=== PATIENT | male | born 1950 | race Caucasian/White ===

== ENCOUNTER 2018-07-21 12:46 | Outpatient (CLI) | payer MEDICARE ==
--- NOTE | 2018-07-21 15:48 | ULT ---
VENOUS DUPLEX SONOGRAM LEFT LOWER EXTREMITY: 07/21/18 HISTORY: Left leg pain and edema. FINDINGS: Internal thrombus of the greater saphenous vein to the level of the upper thigh without compression. Good color and spectral doppler flow within the common femoral vein, femoral, and deep femoral veins, popliteal, and posterior tibial veins. IMPRESSION: Thrombosis throughout the left greater saphenous vein. The findings were called to Dr. Barkley at 1557 hours. Code CR POS: SJ
== END 2018-07-21 12:47 | disposition home or self-care (01) ==
LOC: ULT 12:46
PROVIDERS: ATTEND Family Medicine
DX: M79.89 Other specified soft tissue disorders (principal); I82.812 Embolism and thrombosis of superficial veins of left lower extremity
CPT/HCPCS: 80053; 85025

== ENCOUNTER 2018-07-22 10:04 | Emergency (ER) | payer MEDICARE ==
[2018-07-22] MEDS ORDERED: Enoxaparin Sodium 80 MG/0.8 ML SYRINGE ONE (11:48)
== END 2018-07-22 11:54 | disposition home or self-care (01) ==
LOC: ERS 10:04
DX: I82.402 Acute embolism and thrombosis of unspecified deep veins of left lower extremity (principal); I10 Essential (primary) hypertension; Z86.73 Personal history of transient ischemic attack (TIA), and cerebral infarction without residual deficits; Z79.82 Long term (current) use of aspirin; Z79.899 Other long term (current) drug therapy; Z79.01 Long term (current) use of anticoagulants
CPT/HCPCS: 96372; J1650

== ENCOUNTER 2019-09-29 13:31 | Emergency (ER) | payer MEDICARE ==
[2019-09-29] MEDS ORDERED: HYDROcodone/Acetaminophen 10/325 mg Tablet ONE (14:23)
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
[2019-09-29] MEDS ORDERED: Bacitracin 1 PK ONE (14:50)
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
== END 2019-09-29 15:40 | disposition home or self-care (01) ==
LOC: ERS 13:31
DX: S22.31XA Fracture of one rib, right side, initial encounter for closed fracture (principal); S80.11XA Contusion of right lower leg, initial encounter; S41.112A Laceration without foreign body of left upper arm, initial encounter; V43.92XA Unspecified car occupant injured in collision with other type car in traffic accident, initial encounter
CPT/HCPCS: 93005; 93010

== ENCOUNTER 2020-03-29 10:51 | Outpatient (CLI) | payer MEDICARE ==
--- NOTE | 2020-03-29 11:12 | ULT ---
ULTRASOUND DOPPLER DUPLEX VENOUS RIGHT LOWER EXTREMITY: DATE: 03/29/2020 HISTORY: 69-year-old male with right lower extremity pain, swelling, and erythema TECHNIQUE: Grayscale, color-flow, and spectral analysis, of major veins of right lower extremity. FINDINGS: There is demonstration of blood flow with normal compressibility, of the right common femoral, profun da femoral, greater saphenous, femoral, popliteal, and posterior tibial, veins. Mild edema in the soft tissues of the calf. IMPRESSION: 1). No deep venous thrombosis of right lower extremity. 2) soft tissue edema at right leg
== END 2020-03-29 10:52 | disposition home or self-care (01) ==
LOC: BICULT 10:51
PROVIDERS: ATTEND Family Medicine
DX: M79.604 Pain in right leg (principal); R60.0 Localized edema

== ENCOUNTER 2022-03-27 13:16 | Outpatient (CLI) | payer MEDICARE | END 2022-03-27 13:17 | disposition home or self-care (01) | LOC: ULT 13:16 | PROVIDERS: ATTEND Family Medicine | DX: M79.605 Pain in left leg (principal); M79.89 Other specified soft tissue disorders; I82.812 Embolism and thrombosis of superficial veins of left lower extremity ==

== ENCOUNTER 2022-11-22 08:22 | Outpatient (CLI) | payer MEDICARE ==
[2022-11-22] MEDS ORDERED: Iopamidol 370 76% 100 ML VIAL ONE (10:31)
== END 2022-11-22 08:23 | disposition home or self-care (01) ==
LOC: BICCT 08:22
PROVIDERS: ATTEND Internal Medicine Gastroenterology
DX: C18.9 Malignant neoplasm of colon, unspecified (principal); K76.0 Fatty (change of) liver, not elsewhere classified; N28.1 Cyst of kidney, acquired; K57.30 Diverticulosis of large intestine without perforation or abscess without bleeding; N32.89 Other specified disorders of bladder
CPT/HCPCS: 74177; 82565

== ENCOUNTER 2022-12-19 15:26 | Inpatient (IN) | payer MEDICARE ==
[~2022-12-19 15:26] MED LIST: Iopamidol-370 76% 500 ML 1 ML ONE
[2022-12-19] MEDS ORDERED: LORazepam 2 MG/ML SYR.(CARPUJECT) ONE (15:35)
[2022-12-19] MEDS ORDERED: Diltiazem 125 MG/25 ML ONE (15:36)
[2022-12-19] MEDS ORDERED: Rocuronium Bromide 10 MG/ML (10ML VIAL) ONE (15:52)
[2022-12-19 16:04] LABS: #Eosinphils 0.2 thou/uL (0.0-0.7); #Lymphocytes 3.3 thou/uL (1.20-3.40); #Monocytes 1.1 thou/uL (0.11-0.59); #Neutrophils 6.3 thou/uL (1.40-6.50); %Basophils 0.4 % (0.0-1.0); %Eosinophils 1.6 % (0.0-10.0); %Lymphocytes 30.2 % (21.0-51.0); %Monocytes 9.9 % (0.0-10.0); %Neutrophils 57.8 % (42.0-75.0); Hemoglobin 18.8 g/dL (14.0-18.0); Mean Corpuscular HGB CONC 32.8 g/dL (32.0-36.0); Mean Corpuscular Hemoglobin 31.9 pg (27.0-31.0); Mean Corpuscular Volume 97.1 fl (78.0-98.0); Mean Platelet Volume 9.3 fL (7.4-10.4); Platelet Count 214 10x3/uL (130-400); RBC Distribution Width 12.4 % (11.5-14.5); Red Blood Cell (RBC) Count 5.91 mill/uL (4.70-6.10); White Blood Cell (WBC) Count 10.8 10x3/uL (4.8-10.8)
[2022-12-19] MEDS ORDERED: Midazolam HCl 2 mg/2 ml Vial ONE ×2 (16:06→16:48)
[2022-12-19] MEDS ORDERED: Dexamethasone 10 MG/ML VIAL ONE (16:10)
[2022-12-19] MEDS ORDERED: diphenhydrAMINE 50 MG/ML VIAL ONE (16:10)
[2022-12-19 16:14] LABS: Actual Bicarbonate (HCO3v) 15 mEq/L (22-28); Analyzer IN Cardio ER; Calcium, Ionized (venous) 1.04 mmol/L (1.16-1.32); Chloride (VBG) 107 mmol/L (98-106); Sodium 139.3 mmol/L (133-146)
[2022-12-19 16:16] LABS: Potassium (VBG) 7.36 mmol/L (3.70-5.30)
[2022-12-19] MEDS ORDERED: Vancomycin 1 GM/200 ML (FROZEN) BAG ONE (16:38)
[2022-12-19] MEDS ORDERED: Magnesium 2 GM/50 ML BAG (IN WATER) ONE (16:38)
[2022-12-19] MEDS ORDERED: Cefepime 2 GM VIAL ONE (16:38)
[2022-12-19 17:05] LABS: SARS-CoV-2 NAA Rapid Test Not Detected (NotDetected)
[2022-12-19 17:25] LABS: Analyzer IN Cardio ER; Base Excess (BEa) -6.8 mEq/L (-2.0 to +3.0); CO2 Tension 44.4 mmHg (35.0-45.0); Calcium, Ionized (arterial) 1.13 mmol/L (1.12-1.30); Carboxyhemoglobin (COHb) 0.3 gm% (0.0-3.0); Hemoglobin (Hb) 17.2 g/dL (14.0-18.0); O2 Tension (PaO2), arterial 83.6 mmHg (> 70.0); pH, Arterial 7.27 (7.35-7.45)
[2022-12-19 17:26] LABS: Puncture Site RBA
[2022-12-19] MEDS ORDERED: Ondansetron PF 4 MG/2 ML Vial IVP PRN (17:44)
[2022-12-19] MEDS ORDERED: Ventilator Sedation Protocol 1 EACH FS SCH (17:44)
[2022-12-19] MEDS ORDERED: Thiamine HCl 200 MG/2 ML VIAL SLOW IVP SCH (17:45)
[2022-12-19] MEDS ORDERED: Electrolyte Replacement Protocol 1 EACH FS SCH (17:45)
[2022-12-19 17:57] LABS: ALT (SGPT) 21 U/L (8-55); AST (SGOT) 22 U/L (5-34); Albumin 4.3 g/dL (3.4-4.8); Alkaline Phosphatase 81 U/L (40-110); Anion Gap 15 mmol/L (10-20); BUN (Urea Nitrogen) 13 mg/dL (8.4-25.7); Bilirubin, Total 1.8 mg/dL (0.2-1.2); CK (CPK) 97 U/L (30-200); Calc. Creatinine Clearance 0 mL/min (70-130); Calcium 8.4 mg/dL (7.8-10.44); Carbon Dioxide 19 mmol/L (23-31); Chloride 109 mmol/L (98-107); Estimated GFR 94; Globulin 3.7 g/dL (2.4-3.5); Glucose 185 mg/dL (83-110); Lipase 12 U/L (8-78); Potassium 3.6 mmol/L (3.5-5.1); Sodium 139 mmol/L (136-145)
[2022-12-19 18:13] LABS: Bacteria/HPF None Seen HPF (None Seen); Bilirubin Negative (Negative); Blood, Urine 1+ (Negative); Clarity Clear (Clear); Glucose, Urine (Dipstick) 200 mg/dL (Negative); Ketone, Urine Negative (Negative); Leukocyte Negative Leu/uL (Negative); Nitrite Negative (Negative); Protein, Urine (Dipstick) 10 mg/dL (Neg-Trace); Specific Gravity, Urine 1.022 (1.002-1.036); Squamous Epithelial None Seen HPF (0-3); Urobilinogen Normal mg/dL (Less than 2); WBC/HPF 0-3 HPF (0-3)
[2022-12-19] MEDS ORDERED: DISCONTINUE PREVIOUS NARCOTIC PAIN MEDICATIONS AND BENZODIAZEPINES FS SCH (18:15)
[2022-12-19] MEDS ORDERED: Lorazepam 2 MG/ML VIAL SLOW IVP PRN (18:15)
[2022-12-19] MEDS ORDERED: Propofol BOLUS 1,000 MG/100 ML VIAL IV PRN (18:15)
[2022-12-19] MEDS ORDERED: Fentanyl BOLUS 250 ML IVPB PRN (18:15)
[2022-12-19] MEDS ORDERED: Morphine 2 MG/ML VIAL SLOW IVP PRN (18:15)
[2022-12-19] MEDS ORDERED: Fentanyl CADD 100 ML IV SCH (18:15)
[2022-12-19] MEDS ORDERED: Diltiazem 125 MG in Sodium Chloride 0.9% 100 ML IVPB SCH (18:45)
[2022-12-19] MEDS: Propofol 1,000 MG/100 ML VIAL IV PRN (19:42)
[2022-12-19] MEDS ORDERED: hydrALAZINE 20 MG/ML VIAL SLOW IVP PRN (19:45)
[2022-12-19] MEDS ORDERED: Labetalol HCl 100 MG/20 ML VIAL SLOW IVP PRN (19:45)
[2022-12-19] MEDS ORDERED: Ipratropium/Albuterol 3 ML NEB NEB PRN (19:46)
[2022-12-19] MEDS ORDERED: Guaifenesin DM 100-10/5 ML UDCUP PO PRN (19:46)
[2022-12-19 20:47] LABS: Magnesium 2.5 mg/dL (1.6-2.6); Phosphorus 2.5 mg/dL (2.3-4.7)
[2022-12-19 20:59] LABS: Troponin I 0.243 ng/mL (< 0.028)
[2022-12-19 21:04] LABS: Amphetamine Not Detected (NotDetected); Barbiturates Screen Not Detected (NotDetected); Benzodiazepine Screen Not Detected (NotDetected); Cocaine Metabolite Screen Not Detected (NotDetected); Methadone Not Detected (NotDetected); Methamphetamine Not Detected (NotDetected); Opiate Screen Not Detected (NotDetected); Oxycodone Screen Not Detected (NotDetected); Phencyclidine (PCP) Not Detected (NotDetected); THC/Cannabinoid Screen Not Detected (NotDetected); Tricyclic Screen Not Detected (NotDetected)
[2022-12-19 21:07] LABS: Legionella Urinary Ag Negative (Negative); Strep pneumo Urine Ag NEGATIVE (NEGATIVE)
[2022-12-19] MEDS: Famotidine/PF 20 mg/2ml Vial SLOW IVP SCH (21:22)
[2022-12-19] MEDS ORDERED: Vancomycin HCl 500 MG in Sodium Chloride 0.9% 100 ML IVPB SCH (22:00)
[2022-12-20 03:44] LABS: #Lymphocytes 0.5 thou/uL (1.20-3.40); #Monocytes 0.5 thou/uL (0.11-0.59); #Neutrophils 11.8 thou/uL (1.40-6.50); %Basophils 0.1 % (0.0-1.0); %Eosinophils 0.2 % (0.0-10.0); %Lymphocytes 3.7 % (21.0-51.0); %Monocytes 4.1 % (0.0-10.0); %Neutrophils 91.8 % (42.0-75.0); Hemoglobin 14.7 g/dL (14.0-18.0); Mean Corpuscular HGB CONC 32.6 g/dL (32.0-36.0); Mean Corpuscular Hemoglobin 31.7 pg (27.0-31.0); Mean Platelet Volume 8.5 fL (7.4-10.4); Platelet Count 190 10x3/uL (130-400); RBC Distribution Width 12.4 % (11.5-14.5); Red Blood Cell (RBC) Count 4.66 mill/uL (4.70-6.10); White Blood Cell (WBC) Count 12.9 10x3/uL (4.8-10.8)
[2022-12-20 03:54] LABS: INR-International Normal Ratio 1.2; PTT 28.5 sec (22.9-36.1)
[2022-12-20 04:06] LABS: ALT (SGPT) 17 U/L (8-55); AST (SGOT) 16 U/L (5-34); Albumin 3.7 g/dL (3.4-4.8); Alkaline Phosphatase 64 U/L (40-110); Anion Gap 12 mmol/L (10-20); BUN (Urea Nitrogen) 11 mg/dL (8.4-25.7); Bilirubin, Direct 0.6 mg/dL (0.1-0.3); Bilirubin, Total 1.8 mg/dL (0.2-1.2); Calc. Creatinine Clearance 92 mL/min (70-130); Calcium 8.3 mg/dL (7.8-10.44); Carbon Dioxide 21 mmol/L (23-31); Cardiac Risk 2.3 (Less than 4.5); Chloride 109 mmol/L (98-107); Cholesterol 190 mg/dl (< 200 Desired); Estimated GFR 97; Glucose 156 mg/dL (83-110); HDL Cholesterol 83 mg/dL (>60 Neg Risk); LDL Cholesterol, Calculated 98 mg/dL; Magnesium 2.3 mg/dL (1.6-2.6); Potassium 4.1 mmol/L (3.5-5.1); Protein, Total 6.7 g/dL (5.8-8.1); Sodium 138 mmol/L (136-145); Triglycerides 46 mg/dL (Less than 150)
[2022-12-20 04:08] LABS: Phosphorus 3.1 mg/dL (2.3-4.7)
[2022-12-20] MEDS: Cefepime 2 GM in Sodium Chloride 0.9% 100 ML IVPB SCH ×2 (04:10→17:24)
[2022-12-20] MEDS ORDERED: Aspirin Chewable 81 MG TAB PER TUBE SCH ×2 (04:15→09:00)
[2022-12-20 05:50] LABS: Critical Call Chem Troponin I RESULT DECREASING
[2022-12-20 06:09] LABS: CKMB 5.5 ng/mL (0-6.6)
[2022-12-20 08:35] LABS: Phosphorus 3.3 mg/dL (2.3-4.7)
[2022-12-20 08:36] LABS: Magnesium 2.2 mg/dL (1.6-2.6)
[2022-12-20] MEDS ORDERED: Empagliflozin 10 MG TAB PO SCH (09:30)
[2022-12-20] MEDS: Multivitamin W/ Minerals 1 TAB PER TUBE SCH (09:53)
[2022-12-20] MEDS: Cyanocobalamin (Vitamin B-12) 1,000 MCG TAB PER TUBE SCH (09:53)
[2022-12-20] MEDS: Famotidine/PF 20 mg/2ml Vial SLOW IVP SCH ×2 (09:53→21:34)
[2022-12-20] MEDS: Furosemide 40 MG/4 ML VIAL SLOW IVP SCH (09:53)
[2022-12-20] MEDS: Folic Acid 1 MG TAB PER TUBE SCH (09:53)
[2022-12-20] MEDS: Vancomycin 1 GM in Premix Bag 1 BAG IVPB SCH ×2 (09:54→21:35)
[2022-12-20] MEDS: Propofol 1,000 MG/100 ML VIAL IV PRN (19:07)
[2022-12-20] MEDS: Thiamine HCl 200 MG/2 ML VIAL SLOW IVP SCH (21:31)
[2022-12-21] MEDS: Cefepime 2 GM in Sodium Chloride 0.9% 100 ML IVPB SCH ×2 (03:27→16:51)
[2022-12-21 05:16] LABS: #Lymphocytes 1.2 thou/uL (1.20-3.40); #Monocytes 1.5 thou/uL (0.11-0.59); #Neutrophils 13.1 thou/uL (1.40-6.50); %Basophils 0.1 % (0.0-1.0); %Eosinophils 0.2 % (0.0-10.0); %Lymphocytes 7.7 % (21.0-51.0); %Monocytes 9.4 % (0.0-10.0); %Neutrophils 82.5 % (42.0-75.0); Hemoglobin 13.9 g/dL (14.0-18.0); Mean Corpuscular HGB CONC 31.8 g/dL (32.0-36.0); Mean Corpuscular Hemoglobin 31.1 pg (27.0-31.0); Mean Corpuscular Volume 98.1 fl (78.0-98.0); Mean Platelet Volume 9.1 fL (7.4-10.4); Platelet Count 192 10x3/uL (130-400); RBC Distribution Width 12.4 % (11.5-14.5); Red Blood Cell (RBC) Count 4.47 mill/uL (4.70-6.10); White Blood Cell (WBC) Count 15.9 10x3/uL (4.8-10.8)
[2022-12-21 05:25] LABS: INR-International Normal Ratio 1.1; PTT 28.3 sec (22.9-36.1)
[2022-12-21 05:35] LABS: Anion Gap 13 mmol/L (10-20); BUN (Urea Nitrogen) 16 mg/dL (8.4-25.7); Calc. Creatinine Clearance 82 mL/min (70-130); Calcium 8.5 mg/dL (7.8-10.44); Carbon Dioxide 22 mmol/L (23-31); Chloride 108 mmol/L (98-107); Estimated GFR 95; Glucose 101 mg/dL (83-110); Magnesium 2.3 mg/dL (1.6-2.6); Potassium 3.8 mmol/L (3.5-5.1); Sodium 139 mmol/L (136-145)
[2022-12-21 05:39] LABS: Troponin I 0.109 ng/mL (< 0.028)
[2022-12-21 07:50] LABS: Actual Bicarbonate (HCO3a) 22.2 mEq/L (22-28); Base Excess (BEa) -1.9 mEq/L (-2.0 to +3.0); CO2 Tension 36.1 mmHg (35.0-45.0); Calcium, Ionized (arterial) 1.18 mmol/L (1.12-1.30); Carboxyhemoglobin (COHb) 1.2 gm% (0.0-3.0); O2 Tension (PaO2), arterial 115.2 mmHg (> 70.0); Potassium - ABG Lab 3.82 mmol/L (3.70-5.30); pH, Arterial 7.41 (7.35-7.45)
[2022-12-21 07:55] LABS: ALV-art Gradient 124.875 mmHg (0-20); Puncture Site LRA
[2022-12-21] MEDS: Multivitamin W/ Minerals 1 TAB PER TUBE SCH (09:06)
[2022-12-21] MEDS: Empagliflozin 10 MG TAB PO SCH (09:06)
[2022-12-21] MEDS: Cyanocobalamin (Vitamin B-12) 1,000 MCG TAB PER TUBE SCH (09:06)
[2022-12-21] MEDS: Folic Acid 1 MG TAB PER TUBE SCH (09:06)
[2022-12-21] MEDS: Furosemide 40 MG/4 ML VIAL SLOW IVP SCH ×2 (09:07→15:03)
[2022-12-21] MEDS: Spironolactone 25 MG TAB PO SCH (09:07)
[2022-12-21] MEDS: Famotidine/PF 20 mg/2ml Vial SLOW IVP SCH ×2 (09:07→20:22)
[2022-12-21 09:33] LABS: Vancomycin, Trough 15.4 ug/mL
[2022-12-21] MEDS ORDERED: Insulin Regular 300 UNITS/3 ML VIAL SC PRN (09:46)
[2022-12-21 18:52] LABS: Anion Gap 16 mmol/L (10-20); BUN (Urea Nitrogen) 20 mg/dL (8.4-25.7); Calc. Creatinine Clearance 77 mL/min (70-130); Calcium 8.5 mg/dL (7.8-10.44); Carbon Dioxide 23 mmol/L (23-31); Chloride 104 mmol/L (98-107); Estimated GFR 93; Glucose 95 mg/dL (83-110); Potassium 3.8 mmol/L (3.5-5.1); Sodium 139 mmol/L (136-145)
[2022-12-21] MEDS ORDERED: Genteal 0.3% 3.5ml GEL EA EYE PRN (19:52)
[2022-12-21] MEDS: Thiamine HCl 200 MG/2 ML VIAL SLOW IVP SCH (20:21)
[2022-12-22] MEDS: Cefepime 2 GM in Sodium Chloride 0.9% 100 ML IVPB SCH ×2 (04:41→17:48)
[2022-12-22] MEDS: Furosemide 40 MG/4 ML VIAL SLOW IVP SCH ×2 (05:41→07:37)
[2022-12-22 07:12] LABS: #Monocytes 1.7 thou/uL (0.11-0.59); #Neutrophils 11.9 thou/uL (1.40-6.50); %Basophils 0.1 % (0.0-1.0); %Eosinophils 0.3 % (0.0-10.0); %Monocytes 11.6 % (0.0-10.0); Hemoglobin 15.1 g/dL (14.0-18.0); Mean Corpuscular HGB CONC 33.4 g/dL (32.0-36.0); Mean Corpuscular Volume 95.6 fl (78.0-98.0); Platelet Count 189 10x3/uL (130-400); RBC Distribution Width 12.1 % (11.5-14.5); Red Blood Cell (RBC) Count 4.72 mill/uL (4.70-6.10); White Blood Cell (WBC) Count 14.6 10x3/uL (4.8-10.8)
[2022-12-22 07:31] LABS: INR-International Normal Ratio 1.1; PTT 25.8 sec (22.9-36.1); Prothrombin Time 14.9 sec (12.0-14.7)
[2022-12-22 07:34] LABS: Anion Gap 18 mmol/L (10-20); BUN (Urea Nitrogen) 25 mg/dL (8.4-25.7); Calc. Creatinine Clearance 739 mL/min (70-130); Calcium 9.3 mg/dL (7.8-10.44); Carbon Dioxide 20 mmol/L (23-31); Chloride 109 mmol/L (98-107); Estimated GFR 95; Glucose 90 mg/dL (83-110); Magnesium 2.6 mg/dL (1.6-2.6); Potassium 3.7 mmol/L (3.5-5.1); Sodium 143 mmol/L (136-145)
[2022-12-22] MEDS: Empagliflozin 10 MG TAB PO SCH (09:05)
[2022-12-22] MEDS: Cyanocobalamin (Vitamin B-12) 1,000 MCG TAB PER TUBE SCH (09:05)
[2022-12-22] MEDS: Famotidine/PF 20 mg/2ml Vial SLOW IVP SCH (09:05)
[2022-12-22] MEDS: Multivitamin W/ Minerals 1 TAB PER TUBE SCH (09:05)
[2022-12-22] MEDS: Carvedilol 6.25 MG TAB PO SCH ×2 (09:05→17:47)
[2022-12-22] MEDS: Folic Acid 1 MG TAB PER TUBE SCH (09:05)
[2022-12-22] MEDS: Spironolactone 25 MG TAB PO SCH (09:05)
[2022-12-22] MEDS ORDERED: SYSTANE GEL OPHTH DROPS 10 ML EA EYE PRN (09:15)
[2022-12-22] MEDS ORDERED: Communication Order-Pharmacy FS SCH (12:45)
[2022-12-23] MEDS: Cefepime 2 GM in Sodium Chloride 0.9% 100 ML IVPB SCH ×2 (03:34→17:20)
[2022-12-23] MEDS: Carvedilol 6.25 MG TAB PO SCH ×2 (05:15→17:20)
[2022-12-23] MEDS: Tamsulosin HCl 0.4 MG CAP PO SCH (05:15)
[2022-12-23] MEDS: Spironolactone 25 MG TAB PO SCH (05:15)
[2022-12-23] MEDS: Cyanocobalamin (Vitamin B-12) 1,000 MCG TAB PER TUBE SCH (05:15)
[2022-12-23] MEDS: Multivitamin W/ Minerals 1 TAB PER TUBE SCH (05:15)
[2022-12-23] MEDS: Folic Acid 1 MG TAB PER TUBE SCH (05:15)
[2022-12-23 05:29] LABS: #Eosinphils 0.1 thou/uL (0.0-0.7); #Lymphocytes 1.3 thou/uL (1.20-3.40); #Monocytes 1.8 thou/uL (0.11-0.59); #Neutrophils 10.4 thou/uL (1.40-6.50); %Basophils 0.1 % (0.0-1.0); %Eosinophils 0.5 % (0.0-10.0); %Lymphocytes 9.2 % (21.0-51.0); %Monocytes 13.4 % (0.0-10.0); %Neutrophils 76.7 % (42.0-75.0); Hemoglobin 14.9 g/dL (14.0-18.0); Mean Corpuscular HGB CONC 32.9 g/dL (32.0-36.0); Mean Corpuscular Hemoglobin 31.7 pg (27.0-31.0); Mean Corpuscular Volume 96.4 fl (78.0-98.0); Mean Platelet Volume 9.3 fL (7.4-10.4); Platelet Count 199 10x3/uL (130-400); White Blood Cell (WBC) Count 13.6 10x3/uL (4.8-10.8)
[2022-12-23 05:33] LABS: INR-International Normal Ratio 1.2; PTT 30.6 sec (22.9-36.1); Prothrombin Time 15.3 sec (12.0-14.7)
[2022-12-23 05:46] LABS: Anion Gap 19 mmol/L (10-20); BUN (Urea Nitrogen) 24 mg/dL (8.4-25.7); Calc. Creatinine Clearance 88 mL/min (70-130); Calcium 8.9 mg/dL (7.8-10.44); Carbon Dioxide 17 mmol/L (23-31); Chloride 107 mmol/L (98-107); Estimated GFR 99; Glucose 84 mg/dL (83-110); Magnesium 2.6 mg/dL (1.6-2.6); Potassium 3.9 mmol/L (3.5-5.1); Sodium 139 mmol/L (136-145)
[2022-12-23] MEDS ORDERED: Lidocaine 1% (PF) 30 ML VIAL ONE (07:08)
[2022-12-23] MEDS ORDERED: Midazolam HCl 2 mg/2 ml Vial ONE (08:24)
[2022-12-23] MEDS ORDERED: Nitroglycerin 0.4 MG TAB (25 Tab Bottle) SL PRN (08:49)
[2022-12-23] MEDS ORDERED: Sodium Chloride 0.9% 200 ML IV PRN (08:49)
[2022-12-23] MEDS ORDERED: Aspirin 81 mg Enteric Coated Tablet PO SCH (09:00)
[2022-12-23] MEDS ORDERED: Iopamidol 370 76% 100 ML VIAL ONE (09:10)
[2022-12-23 09:43] VITALS: BMI 22.6
[2022-12-23] MEDS: Sacubitril 49 MG/Valsartan 51 MG TABLET PO SCH ×2 (09:49→20:38)
[2022-12-23] MEDS: Atorvastatin Calcium 40 MG TAB PO SCH (20:37)
[2022-12-23 22:12] LABS: Mycoplasma pneumoniae IgG AB 175 U/mL (0-99); Mycoplasma pneumoniae IgM AB Less than 770 U/mL (0-769)
[2022-12-24] MEDS: Cefepime 2 GM in Sodium Chloride 0.9% 100 ML IVPB SCH ×2 (05:31→16:02)
[2022-12-24] MEDS: Sacubitril 49 MG/Valsartan 51 MG TABLET PO SCH ×2 (10:00→21:44)
[2022-12-24] MEDS: Tamsulosin HCl 0.4 MG CAP PO SCH (10:00)
[2022-12-24] MEDS: Aspirin Chewable 81 MG TAB PO SCH (10:01)
[2022-12-24] MEDS: Spironolactone 25 MG TAB PO SCH (10:01)
[2022-12-24] MEDS: Multivitamin W/ Minerals 1 TAB PO SCH (10:01)
[2022-12-24] MEDS: Carvedilol 6.25 MG TAB PO SCH ×2 (10:02→16:05)
[2022-12-24] MEDS: Thiamine 100 MG TAB PO SCH (10:03)
[2022-12-24] MEDS: Cyanocobalamin (Vitamin B-12) 1,000 MCG TAB PO SCH (10:03)
[2022-12-24] MEDS: Lansoprazole 15 MG/5 ML (BATCHED)UDCUP PO SCH (10:03)
[2022-12-24] MEDS: Empagliflozin 10 MG TAB PO SCH (10:04)
[2022-12-24] MEDS: Folic Acid 1 MG TAB PO SCH (10:04)
[2022-12-24] MEDS: Atorvastatin Calcium 40 MG TAB PO SCH (21:45)
[2022-12-25] MEDS: Cefepime 2 GM in Sodium Chloride 0.9% 100 ML IVPB SCH (03:16)
[2022-12-25] MEDS: Cyanocobalamin (Vitamin B-12) 1,000 MCG TAB PO SCH (09:21)
[2022-12-25] MEDS: Multivitamin W/ Minerals 1 TAB PO SCH (09:21)
[2022-12-25] MEDS: Aspirin Chewable 81 MG TAB PO SCH (09:21)
[2022-12-25] MEDS: Thiamine 100 MG TAB PO SCH (09:21)
[2022-12-25] MEDS: Carvedilol 6.25 MG TAB PO SCH (09:21)
[2022-12-25] MEDS: Spironolactone 25 MG TAB PO SCH (09:21)
[2022-12-25] MEDS: Folic Acid 1 MG TAB PO SCH (09:21)
[2022-12-25] MEDS: Tamsulosin HCl 0.4 MG CAP PO SCH (09:21)
[2022-12-25] MEDS: Sacubitril 49 MG/Valsartan 51 MG TABLET PO SCH (09:21)
[2022-12-25] MEDS: Empagliflozin 10 MG TAB PO SCH (09:21)
[2022-12-25] MEDS: Lansoprazole 15 MG/5 ML (BATCHED)UDCUP PO SCH (09:22)
[2022-12-25 11:18] VITALS: TEMP 98.8
[2022-12-25 13:31] VITALS: BP 113/66
== END 2022-12-25 15:25 | disposition home health service (06) | DRG 280 ==
LOC: ERS 15:26 → CCU 18:29 → 2NO 12-22 13:30
PROVIDERS: ADMIT Internal Medicine; ATTEND Family Medicine
PROC: 4A023N7 Measurement of Cardiac Sampling and Pressure, Left Heart, Percutaneous Approach (ICD-10-PCS; principal; 2022-12-19)
PROC: 5A1945Z Respiratory Ventilation, 24-96 Consecutive Hours (ICD-10-PCS; 2022-12-19)
PROC: B2151ZZ Fluoroscopy of Left Heart using Low Osmolar Contrast (ICD-10-PCS; 2022-12-19)
PROC: B2111ZZ Fluoroscopy of Multiple Coronary Arteries using Low Osmolar Contrast (ICD-10-PCS; 2022-12-19)
PROC: 0BH17EZ Insertion of Endotracheal Airway into Trachea, Via Natural or Artificial Opening (ICD-10-PCS; 2022-12-19)
DX: I11.0 Hypertensive heart disease with heart failure (principal); I21.4 Non-ST elevation (NSTEMI) myocardial infarction; I50.21 Acute systolic (congestive) heart failure; J96.01 Acute respiratory failure with hypoxia; I16.1 Hypertensive emergency; I47.1 Supraventricular tachycardia; I69.951 Hemiplegia and hemiparesis following unspecified cerebrovascular disease affecting right dominant side; Z20.822 Contact with and (suspected) exposure to COVID-19; F10.20 Alcohol dependence, uncomplicated; R31.29 Other microscopic hematuria; D75.1 Secondary polycythemia; Z88.8 Allergy status to other drugs, medicaments and biological substances; Z79.02 Long term (current) use of antithrombotics/antiplatelets; Z79.899 Other long term (current) drug therapy; Z88.6 Allergy status to analgesic agent; I69.922 Dysarthria following unspecified cerebrovascular disease; Z86.718 Personal history of other venous thrombosis and embolism; Z85.46 Personal history of malignant neoplasm of prostate; Z86.711 Personal history of pulmonary embolism
CPT/HCPCS: 31500; 36415; 36600; 70551; 71045; 71275; 80048; 80053; 80061; 80076; 80202; 80306; 80307; 81003; 81015; 82550; 82553; 82805; 83605; 83690; 83735; 83880; 84100; 84145; 84443; 84484; 85025; 85610; 85730; 87040; 87081; 87086; 87449; 87899; 93005; 93010; 93306; 93458; 93798; 94002; 94003; 94660; 97139; 99152; 99153; C1769; J0692; J1100; J1200; J1650; J1940; J2001; J2060; J2250; J2704; J3370; J3370-JW; J3411; J3475; J3490; Q9967; S0028; U0002

== ENCOUNTER 2024-08-06 10:45 | Outpatient (CLI) | payer MEDICARE | END 2024-08-06 10:46 | disposition home or self-care (01) | LOC: BICRAD 10:45 | PROVIDERS: ATTEND Family Medicine | DX: R05.3 Chronic cough (principal); J98.11 Atelectasis; J34.89 Other specified disorders of nose and nasal sinuses | CPT/HCPCS: 36415; 71046; 80053; 85025; 86480 ==

== ENCOUNTER 2025-06-03 13:04 | Outpatient (CLI) | payer MEDICARE | END 2025-06-03 13:05 | disposition home or self-care (01) | LOC: MRI 13:04 | PROVIDERS: ATTEND Family Medicine | DX: R47.9 Unspecified speech disturbances (principal); I67.82 Cerebral ischemia; I73.9 Peripheral vascular disease, unspecified | CPT/HCPCS: 70551 ==